=== PATIENT | female | born 1945 | race Caucasian/White ===

== ENCOUNTER → 2018-01-24 | Outpatient (CLI) | payer MEDICARE ==
[~2018-01-24] MED LIST: CATHETER FLUSH 10 ML SYR IV PRN; IOHEXOL 350 MG/ML 100 ML (OMNIPAQUE 350) VIAL IV ONE; NS 100 ML (IVPB) BAG IV ONE
[2018-01-24 13:54] LABS: ALANINE AMINOTRANSFERASE 17 U/L (0-55); ALBUMIN 4.1 GM/DL (3.2-4.5); ALKALINE PHOSPHATASE 90 U/L (40-136); BUN/CREATININE RATIO 12; CALCIUM 10.2 MG/DL (8.5-10.1); CARBON DIOXIDE 27 MMOL/L (21-32); CHLORIDE 101 MMOL/L (98-107); CREATININE SERUM 0.73 MG/DL (0.60-1.30); GFR ESTIMATED > 60; GLUCOSE 104 MG/DL (70-105); POTASSIUM 3.4 MMOL/L (3.6-5.0); SODIUM 138 MMOL/L (135-145)
--- NOTE | 2018-01-24 15:25 | Diagnostic Imaging Report ---
PROCEDURE: CT chest with contrast only. TECHNIQUE: Multiple contiguous axial images were obtained through the chest after administration of intravenous contrast. INDICATION: Cough. COMPARISON: No prior examinations are available for comparison. FINDINGS: There is a partially calcified granuloma with some surrounding scarring in the right lower lobe. There are no other discrete pulmonary nodules, masses or infiltrates. There is no pleural or pericardial fluid. Heart size is normal. Thoracic aorta is normal in caliber without evidence of dissection. There is no pathologically enlarged adenopathy in the chest. There are multiple calcified granulomas in the spleen. There is some fatty infiltration of the liver. The pancreas and adrenal glands and visualized kidneys are unremarkable. There is moderate thoracic spondylosis. IMPRESSION: 1. Partially calcified granuloma with some surrounding scarring in the right lower lobe. 2. Fatty infiltration of the liver. 3. Otherwise unremarkable CT chest. Dictated by: Dictated on workstation # [id number]
== END ==
LOC: RAD 13:11
PROVIDERS: ATTEND Nurse Practitioner Family
DX: J84.10 Pulmonary fibrosis, unspecified (principal); K76.0 Fatty (change of) liver, not elsewhere classified; I10 Essential (primary) hypertension
CPT/HCPCS: 36415; 71260; 80053; 82565; 84520

== ENCOUNTER 2018-02-18 11:30 | Outpatient (CLI) | payer MEDICARE | END 2018-02-18 12:25 | disposition home or self-care (01) | LOC: SLEEP 11:30 | PROVIDERS: ATTEND Nurse Practitioner Family | DX: G47.30 Sleep apnea, unspecified (principal); G47.10 Hypersomnia, unspecified ==

== ENCOUNTER → 2018-02-18 | Outpatient (CLI) | payer MEDICARE ==
[~2018-02-18] MED LIST changes: -CATHETER FLUSH 10 ML SYR IV PRN; -IOHEXOL 350 MG/ML 100 ML (OMNIPAQUE 350) VIAL IV ONE; -NS 100 ML (IVPB) BAG IV ONE; +RT-ALBUTEROL SULF 2.5 MG/3 ML PRE-MIX VIAL INH ONE
[2018-02-18 10:22] LABS: BASOPHILS # (AUTO) 0.1 10^3/uL (0.0-0.1); BASOPHILS % (AUTO) 1 % (0-10); EOSINOPHILS # (AUTO) 0.4 10^3/uL (0.0-0.3); EOSINOPHILS % (AUTO) 5 % (0-10); HEMATOCRIT 43 % (35-52); HEMOGLOBIN 14.8 G/DL (11.5-16.0); LYMPHOCYTES # (AUTO) 1.9 X 10^3 (1.0-4.0); LYMPHOCYTES % (AUTO) 24 % (12-44); MEAN CORPUSCULAR HEMOGLOBIN 30 PG (25-34); MEAN CORPUSCULAR HGB CONC 34 G/DL (32-36); MEAN CORPUSCULAR VOLUME 88 FL (80-99); MEAN PLATELET VOLUME 9.9 FL (7.4-10.4); MONOCYTES # (AUTO) 0.5 X 10^3 (0.0-1.0); MONOCYTES % (AUTO) 7 % (0-12); NEUTROPHILS % (AUTO) 64 % (42-75); PLATELET COUNT 275 10^3/uL (130-400); RED BLOOD COUNT 4.92 10^6/uL (4.35-5.85); RED CELL DISTRIBUTION WIDTH 13.2 % (10.0-14.5); WHITE BLOOD COUNT 7.8 10^3/uL (4.3-11.0)
[2018-02-19 08:02] LABS: ALTERNARIA MOLD RAST <0.35 kU/L (<0.35); RAGWEED RAST <0.35 kU/L (<0.35)
== END ==
LOC: RT 10:00
PROVIDERS: ATTEND Nurse Practitioner Family
DX: J30.2 Other seasonal allergic rhinitis (principal); R05 Cough; R49.0 Dysphonia; R06.00 Dyspnea, unspecified
CPT/HCPCS: 36415; 82785; 85025; 86003; 94060; 94726; 94729

== ENCOUNTER → 2020-06-07 | Outpatient (CLI) | payer MEDICARE ==
[2020-06-07 11:51] LABS: BUN/CREATININE RATIO 13; CARBON DIOXIDE 25 MMOL/L (21-32); CHLORIDE 104 MMOL/L (98-107); CREATININE SERUM 0.62 MG/DL (0.60-1.30); GFR ESTIMATED > 60; POTASSIUM 3.6 MMOL/L (3.6-5.0); SODIUM 140 MMOL/L (135-145)
[2020-06-07 11:52] LABS: ALANINE AMINOTRANSFERASE < 5 U/L (0-55); ALBUMIN 3.7 GM/DL (3.2-4.5); ALKALINE PHOSPHATASE 97 U/L (40-136); BILIRUBIN,TOTAL 0.6 MG/DL (0.1-1.0); CALCIUM 9.6 MG/DL (8.5-10.1); GLUCOSE 127 MG/DL (70-105); TOTAL PROTEIN 7.4 GM/DL (6.4-8.2)
[2020-06-07 14:26] LABS: TRIGLYCERIDES 85 MG/DL (<150); VLDL CHOLESTEROL 17 MG/DL (5-40)
[2020-06-07 14:31] LABS: CHOLESTEROL 127 MG/DL (< 200)
[2020-06-07 14:32] LABS: HDL CHOLESTEROL 36 MG/DL (40-60)
[2020-06-07 14:54] LABS: FREE T4 (FREE THYROXINE) 1.28 NG/DL (0.70-1.48)
== END ==
LOC: LAB FS 10:32
PROVIDERS: ATTEND Nurse Practitioner Family
DX: E03.9 Hypothyroidism, unspecified (principal); R73.01 Impaired fasting glucose; E78.2 Mixed hyperlipidemia; I10 Essential (primary) hypertension
CPT/HCPCS: 36415; 80053; 80061; 83036; 84439; 84443

== ENCOUNTER → 2020-06-21 | Outpatient (CLI) | payer MEDICARE ==
[~2020-06-21] MED LIST changes: +CATHETER FLUSH 10 ML SYR IV PRN; +HOLD METFORMIN - RECEIVED CONTRAST 20 ML VIAL IV SCH; +IOHEXOL 350 MG/ML 100 ML (OMNIPAQUE 350) VIAL IV ONE; +NS 100 ML (IVPB) BAG IV ONE; -RT-ALBUTEROL SULF 2.5 MG/3 ML PRE-MIX VIAL INH ONE
--- NOTE | 2020-06-21 15:55 | Diagnostic Imaging Report ---
PROCEDURE: CT neck soft tissue with contrast. TECHNIQUE: Multiple contiguous axial images were obtained through the neck after the administration of contrast. Auto Exposure Controls were utilized during the CT exam to meet ALARA standards for radiation dose reduction. INDICATION: Left submandibular mass. Loss of voice for one month. COMPARISON: None. FINDINGS: A small area of decreased attenuation is seen within the right palatine tonsils measuring 0.5 cm. No surrounding inflammatory changes are seen. The parapharyngeal fat planes are preserved. No retropharyngeal or prevertebral fluid collections are seen. The nasopharynx, hypopharynx, and larynx have a normal appearance. The vocal folds are symmetric. No evidence of airway compromise. A prominent submandibular lymph node, level 1A, seen on the left measuring 1.2 x 1.9 cm. The parotid, submandibular and thyroid gland are unremarkable. The vascular structures the neck demonstrate no evidence of high-grade stenosis on this nondedicated exam. There is a retropharyngeal course of the bilateral internal carotid arteries. The visualized lung apices are clear. The visualized intracranial contents demonstrate no evidence of pathologic intracranial enhancement or intracranial mass effect. Visualized orbital contents are unremarkable. The visualized paranasal sinuses are clear. The mastoids and middle ears are clear. No acute osseous abnormality in the cervical spine. IMPRESSION: 1. Prominent left submandibular lymph node measuring 1.2 x 1.9 cm. This likely represents the patient's history of left submandibular lump. This is indeterminate and may represent a reactive lymph node versus neoplastic process. Consider further evaluation with focused ultrasound in this area and, if indicated, lymph node FNA or biopsy. 2. Focus of decreased attenuation in the right palatine tonsils, which may represent a small retention cyst. No surrounding inflammatory changes are seen to suggest abscess. Dictated by: Dictated on workstation # [id number]
== END ==
LOC: RAD FS 14:37
PROVIDERS: ATTEND Nurse Practitioner Family
DX: R22.1 Localized swelling, mass and lump, neck (principal)
CPT/HCPCS: 70491

== ENCOUNTER → 2021-03-04 | Outpatient (CLI) | payer OTHER ==
--- NOTE | 2021-03-04 18:00 | Diagnostic Imaging Report ---
INDICATION: Hurt her chest while moving flowerpot. Comparison with CT chest from 01/24/2018. FINDINGS: PA and lateral views. The lungs are well-aerated without air-trapping. No infiltrates are present. There is calcified granuloma in the right lower lung. The heart is not enlarged. No pneumothorax or pleural effusion. Degenerative changes noted along the thoracic spine. IMPRESSION: No acute abnormalities demonstrated. Calcified granulomatous changes are again noted. Dictated by: Dictated on workstation # [id number]
== END ==
LOC: RAD FS 14:25
PROVIDERS: ATTEND Nurse Practitioner Family
DX: L92.9 Granulomatous disorder of the skin and subcutaneous tissue, unspecified (principal)
CPT/HCPCS: 71046

== ENCOUNTER 2021-05-08 13:24 | Emergency (ER) | payer OTHER ==
[2021-05-08] MEDS ORDERED: LACTATED RINGERS 1,000 ML IV SCH (13:45)
[2021-05-08 14:19] LABS: HEMATOCRIT 47 % (35-52); HEMOGLOBIN 16.2 G/DL (11.5-16.0); MEAN CORPUSCULAR HEMOGLOBIN 30 PG (25-34); MEAN CORPUSCULAR HGB CONC 35 G/DL (32-36); MEAN CORPUSCULAR VOLUME 88 FL (80-99); PLATELET COUNT 333 10^3/uL (130-400); WHITE BLOOD COUNT 8.1 10^3/uL (4.3-11.0)
[2021-05-08 14:20] LABS: BASOPHILS # (AUTO) 0.1 10^3/uL (0.0-0.1); BASOPHILS % (AUTO) 1 % (0-10); EOSINOPHILS # (AUTO) 0.1 10^3/uL (0.0-0.3); EOSINOPHILS % (AUTO) 2 % (0-10); LYMPHOCYTES # (AUTO) 2.5 X 10^3 (1.0-4.0); LYMPHOCYTES % (AUTO) 31 % (12-44); MONOCYTES % (AUTO) 12 % (0-12); NEUTROPHILS # (AUTO) 4.3 X 10^3 (1.8-7.8); NEUTROPHILS % (AUTO) 54 % (42-75)
[2021-05-08 14:22] LABS: ALANINE AMINOTRANSFERASE 25 U/L (0-55); ALBUMIN 3.7 GM/DL (3.2-4.5); ALKALINE PHOSPHATASE 105 U/L (40-136); BILIRUBIN,TOTAL 0.6 MG/DL (0.1-1.0); BUN/CREATININE RATIO 14; CALCIUM 9.3 MG/DL (8.5-10.1); CARBON DIOXIDE 21 MMOL/L (21-32); CHLORIDE 96 MMOL/L (98-107); CREATININE SERUM 0.77 MG/DL (0.60-1.30); GFR ESTIMATED > 60; GLUCOSE 128 MG/DL (70-105); SODIUM 133 MMOL/L (135-145); TOTAL PROTEIN 7.7 GM/DL (6.4-8.2)
[2021-05-08 14:23] LABS: POTASSIUM 3.6 MMOL/L (3.6-5.0)
--- NOTE | 2021-05-08 15:00 | ED General ---
General Chief Complaint: Abdominal/GI Problems Stated Complaint: DIARRHEA Nursing Triage Note: diarrhea x 4 days. No n/v. No fevers. Has taken imodium for symptoms. Is rating abdominal cramping at 5/10. History of Present Illness Date Seen by Provider: May 08, 2021 Time Seen by Provider: 14:54 Initial Comments Patient presenting to the emergency department for evaluation of diarrhea that has been going on since Wednesday which would be 5 days now. She says she is having a bowel movement every 20 to 30 minutes and it is watery and loose. She denies any black or blood in her stools. She has not tried Imodium but has tried Kaopectate minimally with no relief. She denies fevers chills nausea vomiting dysuria hematuria abdominal pain. 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 difficile and she was not sure. I asked her if she was on antibiotics for this infection and she said she wants but this was 2 years ago and the testing and treatment was done at an outside facility called [facility] [place]. She denies being on antibiotics recently including the past 6 months and she denies any recent travel and no chemotherapy. She does not feel dizzy and she is in no acute di stress with normal vital signs. Allergies and Home Medications Allergies Coded Allergies: penicillin V (Verified Allergy, Unknown, 05/08/21) sulfamethoxazole (Verified Allergy, Unknown, 05/08/21) tetracycline (Verified Allergy, Unknown, 05/08/21) trimethoprim (Verified Allergy, Unknown, 05/08/21) Patient Home Medication List Home Medication List Reviewed: Yes Review of Systems Review of Systems Constitutional: no symptoms reported EENTM: no symptoms reported Respiratory: no symptoms reported Cardiovascular: no symptoms reported Gastrointestinal: diarrhea Musculoskeletal: no symptoms reported Skin: no symptoms reported Psychiatric/Neurological: No Symptoms Reported All Other Systems Reviewed Negative Unless Noted: Yes Past Hziutbc-Sfknmi-Yymlon Hx Patient Social History Tobacco Use?: No Physical Exam Vital Signs Vital Signs - First Documented 05/08/21 13:37 Temp 36.9 Pulse 87 Resp 16 B/P (MAP) 131/85 (100) Pulse Ox 93 Capillary Refill : Less Than 3 Seconds Height, Weight, BMI Height: '" Weight: lbs. oz. kg; BMI Method: General Appearance: No Apparent Distress, WD/WN HEENT: PERRL/EOMI Neck: Supple Respiratory: Lungs Clear, No Respiratory Distress Cardiovascular: Regular Rate, Rhythm Gastrointestinal: Non Tender, Soft Back: Normal Inspection Extremity: Normal Capillary Refill Neurologic/Psychiatric: Alert, Oriented x3 Skin: Warm/Dry Progress/Results/Core Measures Suspected Sepsis SIRS Temperature: Pulse: 87 Respiratory Rate: 16 Laboratory Tests 05/08/21 13:36: White Blood Count 8.1 Blood Pressure 131 /85 Mean: 100 Laboratory Tests 05/08/21 13:36: Creatinine 0.77, Platelet Count 333, Total Bilirubin 0.6 Results/Orders Lab Results Laboratory Tests Test 05/08/21 13:36 Range/Units White Blood Count 8.1 4.3-11.0 10^3/uL Red Blood Count 5.34 4.35-5.85 10^6/uL Hemoglobin 16.2 H 11.5-16.0 G/DL Hematocrit 47 35-52 % Mean Corpuscular Volume 88 80-99 FL Mean Corpuscular Hemoglobin 30 25-34 PG Mean Corpuscular Hemoglobin Concent 35 32-36 G/DL Red Cell Distribution Width 12.7 10.0-14.5 % Platelet Count 333 130-400 10^3/uL Mean Platelet Volume 10.0 7.4-10.4 FL Immature Granulocyte % (Auto) 1 % Neutrophils (%) (Auto) 54 42-75 % Lymphocytes (%) (Auto) 31 12-44 % Monocytes (%) (Auto) 12 0-12 % Eosinophils (%) (Auto) 2 0-10 % Basophils (%) (Auto) 1 0-10 % Neutrophils # (Auto) 4.3 1.8-7.8 X 10^3 Lymphocytes # (Auto) 2.5 1.0-4.0 X 10^3 Monocytes # (Auto) 1.0 0.0-1.0 X 10^3 Eosinophils # (Auto) 0.1 0.0-0.3 10^3/uL Basophils # (Auto) 0.1 0.0-0.1 10^3/uL Immature Granulocyte # (Auto) 0.1 0.0-0.1 10^3/uL Sodium Level 133 L 135-145 MMOL/L Potassium Level 3.6 3.6-5.0 MMOL/L Chloride Level 96 L 98-107 MMOL/L Carbon Dioxide Level 21 21-32 MMOL/L Anion Gap 16 H 5-14 MMOL/L Blood Urea Nitrogen 11 7-18 MG/DL Creatinine 0.77 0.60-1.30 MG/DL Estimat Glomerular Filtration Rate > 60 BUN/Creatinine Ratio 14 Glucose Level 128 H 70-105 MG/DL Calcium Level 9.3 8.5-10.1 MG/DL Corrected Calcium 9.5 8.5-10.1 MG/DL Total Bilirubin 0.6 0.1-1.0 MG/DL Aspartate Amino Transf (AST/SGOT) 38 H 5-34 U/L Alanine Aminotransferase (ALT/SGPT) 25 0-55 U/L Alkaline Phosphatase 105 40-136 U/L Total Protein 7.7 6.4-8.2 GM/DL Albumin 3.7 3.2-4.5 GM/DL My Orders Orders - WALI GERARDO DO Cbc With Automated Diff (05/08/21 13:41) Comprehensive Metabolic Panel (05/08/21 13:41) Iv/Invasive Line Insertion .IV start (05/08/21 13:41) C Difficile Ag + Toxin A/B. (05/08/21 13:41) Isolation Central Supply Req (05/08/21 13:41) Stool Culture (05/08/21 13:41) Parasite Scrn Stool Giard Cryp (05/08/21 13:41) Fecal Wbc (05/08/21 13:41) Lactated Ringers (Lr 1000 Ml Iv Solution (05/08/21 13:45) Vital Signs/I&O 05/08/21 13:37 Temp 36.9 Pulse 87 Resp 16 B/P (MAP) 131/85 (100) Pulse Ox 93 Capillary Refill : Less Than 3 Seconds Blood Pressure Mean: 100 Progress Note : Progress Note Patient's labs are unremarkable and she has no abdominal tenderness on exam and her vital signs are normal. I did tell her the incidental findings of mild hyponatremia and transaminitis and that this is likely a viral diarrhea but I cannot completely exclude bacterial etiology she did provide a stool sample and that was sent off for further testing. I discussed benefits and risks of treating her with antibiotics at this time and I felt that given she appears nontoxic with benign work-up that the risks of starting antibiotics without definitive etiology would not be a good idea and I recommended that she use loperamide to decrease her diarrhea and that she drink plenty of Gatorade taken bananas soups Jell-O's yogurts. Patient and daughter aware and agreeable with plan for discharge and verbalized understanding of the need for short-term follow-up and strict ED return precautions discussed if worsening pain fevers vomiting or other general concerns. Departure Impression Primary Impression: Diarrhea Qualified Codes: R19.7 - Diarrhea, unspecified Additional Impressions: Hyponatremia Transaminitis Disposition: HOME, SELF-CARE Condition: Stable Departure-Patient Inst. Referrals: TAMARA HECK APRN (PCP) Primary Care Physician [facility]AN[facility] (Family) Primary Care Physician Patient Instructions: Diarrhea, Adult ED Add. Discharge Instructions: Gatorade, soup, jello, bananas, soft foods. Loperamide 4mg once then 2mg every 6 hours afterwards. All discharge instructions reviewed with patient and/or family. Voiced understanding. WALI GERARDO DO May 08, 2021 15:00
[2021-05-08 15:05] VITALS: BP 137/79
== END 2021-05-08 15:02 | disposition home or self-care (01) ==
LOC: EDUNIT# 13:24 → ER FS 13:26
DX: R19.7 Diarrhea, unspecified (principal); E87.1 Hypo-osmolality and hyponatremia; R74.01 Elevation of levels of liver transaminase levels
CPT/HCPCS: 36415; 80053; 85025; 87015; 87045; 87046; 87077; 87186; 87324; 87328; 87329; 87449; 87899; 89055